=== PATIENT | female | born 1975 | race Caucasian/White ===

== ENCOUNTER 2017-03-03 20:19 | Emergency (ER) | payer OTHER ==
[2017-03-03] MEDS ORDERED: SODIUM CHLORIDE 0.9% 1000 ML INFUS.BAG IV ONE (20:43)
[2017-03-03] MEDS ORDERED: METOCLOPRAMIDE HCL INJECTION 10 MG/2 ML VIAL IVPUSH ONE (20:43)
[2017-03-03] MEDS ORDERED: KETOROLAC TROMETHAMINE 30 MG/1 ML VIAL IVPUSH ONE (20:43)
[2017-03-03 20:45] VITALS: TEMP 97.6; BMI 27.8
[2017-03-03] MEDS ORDERED: KETOROLAC TROMETHAMINE 30 MG/1 ML VIAL ONE (20:49)
[2017-03-03] MEDS ORDERED: METOCLOPRAMIDE HCL INJECTION 10 MG/2 ML VIAL ONE (20:49)
--- NOTE | 2017-03-03 21:00 | PDOC ---
History of Present Illness - General Chief Complaint: Pain, Acute Stated Complaint: ABDOMINAL PAIN Time Seen by Provider: 03/03/17 20:30 - History of Present Illness Initial Comments: 03/03/17 21:20 CHIEF COMPLAINT: pain HISTORY OF PRESENT ILLNESS: 41 yo F s/p uterine fibroid embolization today presents to ED with severe pain and persistent vomiting since discharge from her procedure at 2pm today. Patient states she has been taking the po Dilaudid that was prescribed to her for pain every 4 hours without relief. Patient also states she has been taking Zofran and Phenargan for vomiting but also without relief. Patient denies fever but reports feeling " a lot of chills" and is writhing in pain on exam. Patient denies any bleeding from surgical site, denies diarrhea. PAST MEDICAL HISTORY: Denies past medical history FAMILY HISTORY: Denies SOCIAL HISTORY: Denies tobacco, alcohol, illicit drug use. SURGICAL HISTORY: Denies ALLERGIES: No known drug allergies REVIEW OF SYSTEMS General/Constitutional: Denies fever or chills. Denies weakness, weight change. HEENT: Denies change in vision. Denies ear pain or discharge. Denies sore throat. Cardiovascular: Denies chest pain or shortness of breath. Respiratory: Denies cough, wheezing, or hemoptysis. Gastrointestinal: Pain across entire lower abdomen. Persistent vomiting all day. Denies diarrhea or constipation. Denies rectal bleeding. Genitourinary: Denies dysuria, frequency, or change in urination. Musculoskeletal: Denies joint or muscle swelling or pain. Denies neck or back pain. Skin: Denies rash or easy bruising. Neurologic: Denies headache, vertigo, loss of consciousness, or loss of sensation. PHYSICAL EXAM General Appearance: Well-appearing, appropriately dressed. No apparent distress. HEENT: EOMI, PERRLA, normal ENT inspection, normal voice, TMs normal, pharynx normal. No conjunctival pallor. No photophobia, scleral icterus. Neck: Supple. Trachea midline. No tenderness, rigidity, carotid bruit, stridor , lymphadenopathy, or thyromegaly. Respiratory/Chest: Lungs CTAB. Cardiovascular: RRR. S1, S2. Gastrointestinal/Abdominal: R inguinal post op incision covered with 2x2 gauze and tegaderm; no discharge, erythema, swelling, warmth. Tenderness across lower abdomen with palpation. Normal bowel sounds. Abdomen soft, non- distended. No organomegaly, pulsatile mass, guarding, hernia, hepatomegaly, splenomegaly. Musculoskeletal/Extremities: Normal inspection. FROM of all extremities, normal capillary refill. Pelvis Stable. No CVA tenderness. No tenderness to extremities, pedal edema, swelling, erythema or deformity. Integumentary: Appropriate color, dry, warm. No cyanosis, erythema, jaundice or rash Neurologic: garnett mechanic II-XII intact. Fully oriented, alert. Appropriate mood/affect. Motor strength 5/5. No appreciable EOM palsy, facial droop or sensory deficit. 03/03/17 22:34 Past History - Past Medical History Allergies/Adverse Reactions: Allergies Allergy/AdvReac Type Severity Reaction Status Date / Time No Known Allergies Allergy Verified 03/03/17 20:39 Home Medications: Ambulatory Orders Hydromorphone [Dilaudid -] 4 mg PO Q4H PRN 03/03/17 Ibuprofen [Motrin -] 600 mg PO QID PRN 03/03/17 Ibuprofen [Motrin -] 600 mg PO TID #21 tablet 03/03/17 Metoprolol Succinate [Toprol Xl -] 50 mg PO BID 03/03/17 Ondansetron [Zofran *Odt*] 8 mg SL TID PRN 03/03/17 Polyethylene Glycol 3350 [Miralax (For Bowel Prep) -] 17 gm PO DAILY 03/03/17 Trimethobenzamide HCl [Tigan -] 300 mg PO TID PRN #21 capsule 03/03/17 HTN: Yes - Surgical History Abdominal Surgery: Yes (uterine fibroid embolectomy 03/03/17) - Psycho/Social/Smoking Cessation Hx Suicidal Ideation: No Smoking History: Never smoked Have you smoked in the past 12 months: No Information on smoking cessation initiated: No Hx Alcohol Use: No Drug/Substance Use Hx: No *Physical Exam - Vital Signs Last Vital Signs Temp Pulse Resp BP Pulse Ox 9.6 F L 85 14 151/87 100 03/03/17 20:39 03/03/17 20:39 03/03/17 20:39 03/03/17 20:39 03/03/17 20:39 ED Treatment Course - LABORATORY CBC & Chemistry Diagram: 03/03/17 21:00 03/03/17 21:00 Medical Decision Making - Medical Decision Making 03/03/17 21:23 41 yo F with hx of uterine fibroids s/p removal today presents to ED with severe pain and persistent vomiting since discharge from her procedure. -CBC, CMP, PT/INR -Toradol, Reglan, Benadryl 03/03/17 22:08 Patient reassessed; at this time she states she is feeling better and her pain is more controlled. Advised patient to f/u with surgeon and PCP for further monitoring of post op pain and discomfort. Advised patient to take Tigan instead of other antiemetics previously prescribed and to take Motrin on top of the Dilaudid for post op pain. Advised patient of signs and symptoms for return to ER; patient verbalized understanding and agrees to plan. *DC/Admit/Observation/Transfer Diagnosis at time of Disposition: Post-op pain - Discharge Dispostion Admit: No - Prescriptions Prescriptions: Ibuprofen [Motrin -] 600 mg PO TID #21 tablet Trimethobenzamide HCl [Tigan -] 300 mg PO TID PRN #21 capsule PRN Reason: Nausea And/Or Vomiting - Referrals Referrals: Erik Barragan [Other] Lisa Mcintosh [Other] - Patient Instructions Printed Discharge Instructions: DI for Postoperative Pain Additional Instructions: Please continue taking Dilaudid for your pain. You can also take ibuprofen 3 times a day to help with the inflammatory pain. Stop taking the other anti- nausea/vomiting medications that were prescribed for you; take Tigan instead. If you develop any fever, continued vomiting, worsening pain, or any redness, swelling, or bleeding at the site of the surgery, please return to the ER. Follow up with Dr. Mcintosh and Dr. Barragan TOMORROW for further monitoring and management of your post operative pain.
--- NOTE | 2017-03-03 21:05 | PDOC ---
*Physical Exam - Vital Signs Last Vital Signs Temp Pulse Resp BP Pulse Ox 97.6 F 85 14 151/87 100 03/03/17 20:39 03/03/17 20:39 03/03/17 20:39 03/03/17 20:39 03/03/17 20:39 ED Treatment Course - LABORATORY CBC & Chemistry Diagram: 03/03/17 21:00 03/03/17 21:00 Medical Decision Making - Medical Decision Making 03/03/17 21:05 agree with care from ANGELES Mcgee 03/03/17 22:31 pt s/p laproscopic fibroid embolization. Pt c/o pain that the medication prescribed is not helping. Pt feels better after treatment here in the department. Will discharged *DC/Admit/Observation/Transfer Diagnosis at time of Disposition: Post-op pain - Prescriptions Prescriptions: Ibuprofen [Motrin -] 600 mg PO TID #21 tablet Trimethobenzamide HCl [Tigan -] 300 mg PO TID PRN #21 capsule PRN Reason: Nausea And/Or Vomiting - Referrals Referrals: Erik Barragan [Other] Lisa Mcintosh [Other] - Patient Instructions Printed Discharge Instructions: DI for Postoperative Pain Additional Instructions: Please continue taking Dilaudid for your pain. You can also take ibuprofen 3 times a day to help with the inflammatory pain. Stop taking the other anti- nausea/vomiting medications that were prescribed for you; take Tigan instead. If you develop any fever, continued vomiting, worsening pain, or any redness, swelling, or bleeding at the site of the surgery, please return to the ER. Follow up with Dr. Mcintosh and Dr. Barragan TOMORROW for further monitoring and management of your post operative pain.
[2017-03-03 21:12] LABS: BASOPHIL 0.9 % (0-2.0); MCH 31.9 pg (25.7-33.7); MEAN CELL VOLUME 93.8 fl (80-96); MEAN PLT VOLUME 8.9 fl (7.5-11.1); NEUTROPHILS 91.3 % (42.8-82.8); PLATELET COUNT 279 K/MM3 (134-434); RDW 13.3 % (11.6-15.6); WHITE BLOOD COUNT 12.4 K/mm3 (4.0-10.0)
[2017-03-03 21:13] LABS: URINE APPEARANCE CLEAR; URINE BILIRUBIN NEGATIVE (NEGATIVE); URINE BLOOD 2+ (NEGATIVE); URINE COLOR STRAW; URINE GLUCOSE (UA) 1+ (NEGATIVE); URINE KETONE 2+ (NEGATIVE); URINE LEUK ESTERASE NEGATIVE (NEGATIVE); URINE NITRITE NEGATIVE (NEGATIVE); URINE UROBILINOGEN NEGATIVE mg/dL (0.2-1.0)
[2017-03-03 21:33] LABS: INR 1.12 (0.82-1.09); PROTHROMBIN TIME (PATIENT) 12.4 SEC (9.98-11.88)
[2017-03-03 21:35] LABS: ACTIVATED PTT 26.8 SECONDS (26.9-34.4)
[2017-03-03 21:47] LABS: URINE PROTEIN 2+ (NEGATIVE)
[2017-03-03 21:49] LABS: URINE HYALINE CAST 1 /lpf; URINE MUCUS RARE; URINE RBC 12 /hpf (0-3); URINE WBC 1 /hpf (3-5)
[2017-03-03 21:55] LABS: ALBUMIN 3.8 g/dl (3.4-5.0); ALK PHOS 54 U/L (45-117); ANION GAP 11 (8-16); BILIRUBIN,TOTAL 0.5 mg/dL (0.2-1.0); CALCIUM 8.6 mg/dL (8.5-10.1); CO2 23 mmol/L (21-32); CREATININE 0.7 mg/dL (0.55-1.02); GLUCOSE,RANDOM 98 mg/dL (74-106); SGOT/AST 18 U/L (15-37); SGPT/ALT 27 U/L (12-78); TOT PROT 7.7 g/dl (6.4-8.2)
[2017-03-03 22:42] VITALS: BP 151/84; PULSE 81
== END 2017-03-03 22:42 | disposition home or self-care (01) ==
LOC: JER 20:19
PROC: 3E0337Z Introduction of Electrolytic and Water Balance Substance into Peripheral Vein, Percutaneous Approach (ICD-10-PCS; principal; 2017-03-03)
PROC: 3E033GC Introduction of Other Therapeutic Substance into Peripheral Vein, Percutaneous Approach (ICD-10-PCS; 2017-03-03)
PROC: 3E0333Z Introduction of Anti-inflammatory into Peripheral Vein, Percutaneous Approach (ICD-10-PCS; 2017-03-03)
DX: G89.18 Other acute postprocedural pain (principal); I10 Essential (primary) hypertension
CPT/HCPCS: 36415; 80053; 81003; 81015; 85025; 85610; 85730; 87086; 99281-25